=== PATIENT | female | born 1965 | race Caucasian/White ===

== ENCOUNTER 2016-09-30 23:00 | Emergency (ER) | payer OTHER ==
[~2016-09-30 23:00] MED LIST: METF1000 PO; NAPR220C2 PO; SERT100T PO
[2016-09-30] MEDS ORDERED: LISI-167 PO (23:12)
[2016-09-30] MEDS ORDERED: IBUP400T PO (23:12)
[2016-09-30] MEDS ORDERED: ACET650S21 PO (23:12)
[2016-09-30] MEDS ORDERED: LORazepam 2 MG/ML, 1ML ONE (23:25)
[2016-09-30] MEDS ORDERED: LORazepam 2 MG/ML, 1ML IVPush ONE (23:30)
[2016-09-30 23:40] LABS: ASPARTATE AMINO TRANSFERASE 67 U/L (15-37); BLOOD UREA NITROGEN 20 mg/dL (7-18)
[2016-09-30 23:45] LABS: IS PT STATUS REG ER OR PRE ER? YES
[2016-10-01 00:11] VITALS: BP 146/93
[2016-10-01] MEDS ORDERED: MORPHINE SULFATE 4 MG/ML, 1ML ONE (00:14)
[2016-10-01] MEDS ORDERED: DIPHENHYDRAMINE 50 MG/ML, 1ML IVPush ONE (00:30)
[2016-10-01] MEDS ORDERED: MORPHINE SULFATE 4 MG/ML, 1ML IVPush PRN (00:30)
[2016-10-01] MEDS ORDERED: ONDANSETRON 2MG/ML, 2ML IVPush ONE (00:30)
[2016-10-01] MEDS ORDERED: SODIUM CHLORIDE 0.9% 1,000ML IVBOLUS ONE (00:30)
[2016-10-01] MEDS ORDERED: METOCLOPRAMIDE 5 MG/ML, 2ML IVPush ONE (00:30)
[2016-10-01 02:03] LABS: IS PT STATUS REG ER OR PRE ER? YES
== END 2016-10-01 02:38 | disposition home or self-care (01) ==
LOC: ED 23:14
DX: R20.9 Unspecified disturbances of skin sensation (principal); E78.5 Hyperlipidemia, unspecified
CPT/HCPCS: 36415; 70450; 80053; 84484; 85025; 93005; 96361; 96374; 96375; 99285; J2060; J7030

== ENCOUNTER → 2016-11-05 | Outpatient (CLI) | payer OTHER ==
[~2016-11-05] MED LIST changes: +ACET650S21 PO; +IBUP400T PO; +LISI-167 PO
== END | disposition home or self-care (01) ==
LOC: CFH 06:57
PROVIDERS: ATTEND Nurse Practitioner Family
DX: R90.82 White matter disease, unspecified (principal); I67.82 Cerebral ischemia; M48.02 Spinal stenosis, cervical region; M50.323 Other cervical disc degeneration at C6-C7 level; M25.78 Osteophyte, vertebrae; M43.13 Spondylolisthesis, cervicothoracic region; Z82.69 Family history of other diseases of the musculoskeletal system and connective tissue
CPT/HCPCS: 70551; 72141

== ENCOUNTER → 2017-02-02 | Outpatient (CLI) | payer OTHER ==
[~2017-02-02] MED LIST changes: +IBUP-1221 PO; -IBUP400T PO
== END | disposition home or self-care (01) ==
LOC: CFH 12:25
PROVIDERS: ATTEND Obstetrics & Gynecology
DX: N63.11 Unspecified lump in the right breast, upper outer quadrant (principal)
CPT/HCPCS: 76641; G0204

== ENCOUNTER 2017-06-23 23:51 | Emergency (ER) | payer OTHER ==
[~2017-06-23] VITALS: Ht 167.6 cm; Wt 97.4 kg
[2017-06-24 01:30] LABS: BASOPHILS # (AUTO) 0.02 x10^3/uL (0-0.1); BASOPHILS % (AUTO) 0 % (0-1); EOSINOPHILS % (AUTO) 2 % (1-7); LYMPHOCYTES # (AUTO) 2.59 x10^3/uL (1-3.4); LYMPHOCYTES % (AUTO) 31 % (22-44); MD NO; MEAN CORPUSCULAR HEMOGLOBIN 30.9 pg (27.0-34.8); MEAN CORPUSCULAR HGB CONC 34.5 g/dL (32.4-35.8); MEAN CORPUSCULAR VOLUME 89.6 fL (80-100); MEAN PLATELET VOLUME 8.6 fL (7.4-10.4); MONOCYTES # (AUTO) 0.55 x10^3/uL (0.2-0.8); MONOCYTES % (AUTO) 7 % (2-9); NEUTROPHILS # (AUTO) 5.01 x10^3/uL (1.8-6.8); NEUTROPHILS % (AUTO) 60 % (42-75); PLATELET COUNT 262 x10^3/uL (130-400); RED BLOOD COUNT 4.76 x10^6/uL (3.82-5.3); RED CELL DISTRIBUTION WIDTH 13.4 % (9.6-15.2)
[2017-06-24] MEDS ORDERED: SODIUM CHLORIDE FLUSH 10ML SYR IVF ONE (01:30)
[2017-06-24] MEDS ORDERED: SODIUM CHLORIDE 0.9% 1,000ML IVBOLUS ONE (01:30)
[2017-06-24] MEDS ORDERED: ATOR20TA9 PO (01:30)
[2017-06-24 01:40] LABS: ALBUMIN 4.3 g/dL (3.4-5.0); ANION GAP 9 mmol/L (5-15); CALCIUM 10.3 mg/dL (8.5-10.1); CHLORIDE 105 mmol/L (98-107); CREATININE 0.97 mg/dL (0.55-1.02)
[2017-06-24 02:27] VITALS: BP 133/92
== END 2017-06-24 03:26 | disposition home or self-care (01) ==
LOC: ED 06-24 01:04
DX: R42 Dizziness and giddiness (principal); E86.0 Dehydration; I10 Essential (primary) hypertension; E78.5 Hyperlipidemia, unspecified; Z90.49 Acquired absence of other specified parts of digestive tract
CPT/HCPCS: 36415; 71045; 80048; 82040; 85025; 93005; 99285; J7030

== ENCOUNTER 2017-07-03 15:54 | Emergency (ER) | payer OTHER ==
[~2017-07-03] VITALS: Ht 167.6 cm; Wt 97.5 kg
[~2017-07-03 15:54] MED LIST changes: +ATOR20TA9 PO
[2017-07-03 15:55] VITALS: BP 146/92
[2017-07-03] MEDS ORDERED: GABA300C PO (16:20)
[2017-07-03] MEDS ORDERED: NAPR-816 PO (16:20)
[2017-07-03] MEDS ORDERED: LISI-167 PO (16:20)
== END 2017-07-03 16:45 | disposition home or self-care (01) ==
LOC: ED 16:27
DX: L03.211 Cellulitis of face (principal); I10 Essential (primary) hypertension; E78.5 Hyperlipidemia, unspecified; E28.2 Polycystic ovarian syndrome; Z90.49 Acquired absence of other specified parts of digestive tract
CPT/HCPCS: 99283

== ENCOUNTER → 2017-07-11 | Outpatient (CLI) | payer OTHER ==
[~2017-07-11] MED LIST changes: +GABA300C PO; +NAPR-816 PO
[2017-07-11 15:27] LABS: BASOPHILS # (AUTO) 0.02 x10^3/uL (0-0.1); BASOPHILS % (AUTO) 0 % (0-1); EOSINOPHILS # (AUTO) 0.22 x10^3/uL (0-0.4); EOSINOPHILS % (AUTO) 4 % (1-7); LYMPHOCYTES # (AUTO) 3.04 x10^3/uL (1-3.4); LYMPHOCYTES % (AUTO) 51 % (22-44); MD NO; MEAN CORPUSCULAR HEMOGLOBIN 30.3 pg (27.0-34.8); MEAN CORPUSCULAR HGB CONC 33.9 g/dL (32.4-35.8); MEAN CORPUSCULAR VOLUME 89.5 fL (80-100); MEAN PLATELET VOLUME 8.3 fL (7.4-10.4); MONOCYTES # (AUTO) 0.44 x10^3/uL (0.2-0.8); MONOCYTES % (AUTO) 7 % (2-9); NEUTROPHILS # (AUTO) 2.27 x10^3/uL (1.8-6.8); NEUTROPHILS % (AUTO) 38 % (42-75); PLATELET COUNT 246 x10^3/uL (130-400); RED BLOOD COUNT 4.79 x10^6/uL (3.82-5.3); RED CELL DISTRIBUTION WIDTH 13.5 % (9.6-15.2)
[2017-07-11 15:33] LABS: ALANINE AMINOTRANSFERASE 69 U/L (12-78); ANION GAP 7 mmol/L (5-15); CALCIUM 8.6 mg/dL (8.5-10.1); CHLORIDE 104 mmol/L (98-107); CHOLESTEROL, TOTAL 198 mg/dL (140-239); CREATININE 0.83 mg/dL (0.55-1.02)
[2017-07-11 15:43] LABS: HEMOGLOBIN A1C 6.3 % (4.2-6.3)
[2017-07-11 15:59] LABS: ALKALINE PHOSPHATASE 49 U/L (45-117); BILIRUBIN,TOTAL 0.8 mg/dL (0.2-1.0); CHOL/HDL RATIO 4.4; HDL CHOL % 23 % (28-40); HDL CHOLESTEROL (DIRECT) 45 mg/dL (40-60); LDL CHOLESTEROL,CALCULATED 120 mg/dL (54-169); LDL/HDL RATIO 2.7 (0.5-3.0); TRIGLYCERIDES 165 mg/dL (50-200); VLDL CHOLESTEROL 33 mg/dL (0-25)
== END | disposition home or self-care (01) ==
LOC: LAB 14:59
PROVIDERS: ATTEND Internal Medicine
DX: E11.65 Type 2 diabetes mellitus with hyperglycemia (principal); E28.2 Polycystic ovarian syndrome; E55.9 Vitamin D deficiency, unspecified; E78.2 Mixed hyperlipidemia; G47.00 Insomnia, unspecified
CPT/HCPCS: 36415; 80053; 80061; 82306; 82607; 83036; 84443; 85025

== ENCOUNTER → 2018-01-05 | Outpatient (CLI) | payer OTHER | END | disposition home or self-care (01) | LOC: CFH 08:48 | PROVIDERS: ATTEND Internal Medicine | DX: I11.9 Hypertensive heart disease without heart failure (principal); E78.5 Hyperlipidemia, unspecified; R01.0 Benign and innocent cardiac murmurs | CPT/HCPCS: 93306 ==

== ENCOUNTER 2018-09-14 10:08 | Outpatient (CLI) | payer OTHER ==
[~2018-09-14 10:08] MED LIST changes: +ATOR20TA37 PO; -ATOR20TA9 PO
[2018-09-14] MEDS ORDERED: ACET650S21 PO (10:50)
[2018-09-14] MEDS ORDERED: SIMV40TA3 PO (10:50)
[2018-09-14] MEDS ORDERED: TELM20TA PO (10:50)
[2018-09-14] MEDS ORDERED: CYCL-259 PO (10:50)
[2018-09-14] MEDS ORDERED: ZALE5CAP PO (10:50)
[2018-09-14] MEDS ORDERED: SERT100T PO (10:50)
[2018-09-14 11:19] LABS: ALANINE AMINOTRANSFERASE 76 U/L (12-78); ANION GAP 9 mmol/L (5-15); CALCIUM 9.9 mg/dL (8.5-10.1); CHLORIDE 103 mmol/L (98-107); CREATININE 0.79 mg/dL (0.55-1.02)
[2018-09-14 11:20] LABS: ALKALINE PHOSPHATASE 59 U/L (45-117); BILIRUBIN,TOTAL 0.6 mg/dL (0.2-1.0); TOTAL PROTEIN 8.3 g/dL (6.4-8.2)
== END 2018-09-14 23:59 | disposition home or self-care (01) ==
LOC: STAR 10:08 → EDSTATUS 10:30 → STAR 23:59
PROVIDERS: ATTEND Orthopaedic Surgery
DX: Z01.818 Encounter for other preprocedural examination (principal); G56.03 Carpal tunnel syndrome, bilateral upper limbs
CPT/HCPCS: 36415; 80053

== ENCOUNTER 2018-09-18 07:08 | Day surgery (SDC) | payer OTHER ==
[~2018-09-18] VITALS: Ht 167.6 cm; Wt 99.1 kg
[~2018-09-18 07:08] MED LIST changes: +CYCL-259 PO; +SIMV40TA3 PO; +TELM20TA PO; +ZALE5CAP PO
[2018-09-18] MEDS ORDERED: BUPIVACAINE/EPI 0.5% 1:200K ONE (07:16)
[2018-09-18] MEDS ORDERED: LIDOCAINE 1%, 20ML ONE (07:16)
[2018-09-18] MEDS ORDERED: BUPIVACAINE/PF 0.5% ONE (07:16)
[2018-09-18] MEDS ORDERED: BACITRACIN 50,000 UNIT ONE (07:17)
[2018-09-18 07:43] VITALS: BP 130/90
[2018-09-18] MEDS ORDERED: LACTATED RINGERS 1,000 ML IV SCH (07:47)
[2018-09-18 07:56] LABS: HCG UR SG 1.013 (1.003-1.030)
[2018-09-18] MEDS ORDERED: FENTANYL PF 100 MCG/2ML IV PRN (08:00)
[2018-09-18] MEDS ORDERED: METOCLOPRAMIDE 5 MG/ML, 2ML IV PRN (08:00)
[2018-09-18] MEDS ORDERED: OXYcodone 5 MG/5 ML ORAL.SOL UDC PO PRN (08:00)
[2018-09-18] MEDS ORDERED: hydrALAzine 20 MG/ML, 1ML IV PRN (08:00)
[2018-09-18] MEDS ORDERED: ONDANSETRON ODT 8 MG PO ONE (08:00)
[2018-09-18] MEDS ORDERED: ONDANSETRON 2MG/ML, 2ML IV PRN (08:00)
[2018-09-18] MEDS ORDERED: LABETALOL 5MG/ML, 20ML IV PRN (08:00)
[2018-09-18] MEDS ORDERED: ACETAMINOPHEN 500 MG TABLET PO ONE (08:00)
[2018-09-18] MEDS ORDERED: LORazepam 2 MG/ML, 1ML IVPush PRN (08:00)
[2018-09-18] MEDS ORDERED: HYDROmorphone 2 MG/ML, 1ML IVPush PRN (08:00)
[2018-09-18] MEDS ORDERED: METOPROLOL 1 MG/ML, 5ML IV PRN (08:00)
[2018-09-18] MEDS ORDERED: FENTANYL PF 100 MCG/2ML ONE (08:41)
[2018-09-18] MEDS ORDERED: MIDAZOLAM 1 MG/ML, 2ML ONE (08:41)
[2018-09-18] MEDS ORDERED: CEFAZOLIN 1,000 MG ONE ×2 (08:42)
[2018-09-18] MEDS ORDERED: ONDANSETRON 2MG/ML, 2ML ONE (08:42)
[2018-09-18] MEDS ORDERED: PROPOFOL 10 MG/ML, 20ML ONE (08:46)
== END 2018-09-18 12:20 | disposition home or self-care (01) ==
LOC: OUT 07:08
PROVIDERS: ATTEND Orthopaedic Surgery
DX: G56.03 Carpal tunnel syndrome, bilateral upper limbs (principal); G47.33 Obstructive sleep apnea (adult) (pediatric)
CPT/HCPCS: 29848; 81025; J0690; J2250; J2704; J3010; J7120; Q0162; J2405

== ENCOUNTER 2019-04-25 07:13 | Emergency (ER) | payer OTHER ==
[~2019-04-25] VITALS: Ht 167.6 cm; Wt 98.6 kg
[2019-04-25 07:14] VITALS: BP_DIAS 99
[2019-04-25] MEDS ORDERED: HYDROcodone/APAP 5/325 TABLET PO ONE ×2 (08:00→10:00)
[2019-04-25] MEDS ORDERED: HYDROcodone/APAP 5/325 TABLET ONE ×2 (08:12→08:57)
[2019-04-25 09:02] VITALS: BP_SYST 109
--- NOTE | 2019-04-25 09:02 | NUR ---
medicated for shoulder pain, pt driving pt home. Patient given discharge instructions and they have confirmed that they understand the instructions. Patient ambulatory with steady gait.
== END 2019-04-25 09:04 ==
LOC: ED 08:50
DX: M25.512 Pain in left shoulder (principal); E78.5 Hyperlipidemia, unspecified; I10 Essential (primary) hypertension
CPT/HCPCS: 93005; 99283